=== PATIENT | female | born 1935 | race Caucasian/White ===

== ENCOUNTER → 2016-08-29 | Outpatient (CLI) | payer OTHER | LOC: FIMAGING 16:02 | PROVIDERS: ATTEND Physician Assistant | DX: Z96.643 Presence of artificial hip joint, bilateral (principal); M25.551 Pain in right hip; M85.40 Solitary bone cyst, unspecified site ==

== ENCOUNTER → 2016-10-03 | Outpatient (CLI) | payer OTHER ==
[~2016-10-03] MED LIST: IOPAMIDOL (ISOVUE-300) 100 ML BTL IV ONE
[2016-10-03 12:13] LABS: CREATININE 0.7 mg/dL (0.6-1.0); GLOMERULAR FILTRATION RATE > 60
== END ==
LOC: FIMAGING 10:44
PROVIDERS: ATTEND Physician Assistant
DX: M16.11 Unilateral primary osteoarthritis, right hip (principal); N83.201 Unspecified ovarian cyst, right side; Z96.642 Presence of left artificial hip joint
CPT/HCPCS: 72194; Q9967

== ENCOUNTER → 2016-11-05 | Outpatient (CLI) | payer OTHER | LOC: FIMAGING 10:25 | PROVIDERS: ATTEND Internal Medicine | DX: R19.00 Intra-abdominal and pelvic swelling, mass and lump, unspecified site (principal) ==

== ENCOUNTER → 2016-12-04 | Outpatient (CLI) | payer OTHER ==
--- NOTE | 2016-12-04 11:08 | CPEKG ---
Heart Rate: 60 RR Interval: 1000 P-R Interval: 236 QRSD Interval: 148 QT Interval: 448 QTC Interval: 448 P [place]: 78 QRS [place]: 88 T Wave [place]: 42 EKG Severity - ABNORMAL ECG - EKG Impression: SINUS RHYTHM EKG Impression: FIRST DEGREE AV BLOCK EKG Impression: RIGHT BUNDLE BRANCH BLOCK Electronically Signed By: Brennan Zavala 04-Dec-2016 16:35:39
== END ==
LOC: FCP 10:39
DX: R94.31 Abnormal electrocardiogram [ECG] [EKG] (principal); R19.00 Intra-abdominal and pelvic swelling, mass and lump, unspecified site